=== PATIENT | female | born 1985 | race Caucasian/White ===

== ENCOUNTER 2016-08-26 00:33 | Emergency (ER) | payer OTHER, BC ==
[~2016-08-26] VITALS: Ht 165.1 cm; Wt 62.6 kg
[~2016-08-26 00:33] MED LIST: BIRTH CONTROL PO
[2016-08-26 00:35] VITALS: BP 101/61
[2016-08-26] MEDS ORDERED: ACETAMINOPHEN 325 MG TABLET PO ONE (01:30)
--- NOTE | 2016-08-26 01:33 | PHYS DOC ---
Past History Past Medical History: No Pertinent History, Other Past Surgical History: No Surgical History, Tonsillectomy Smoking: Non-smoker Alcohol Use: None Drug Use: None Adult General Chief Complaint Chief Complaint: UPPER EXTREMITY PAIN HPI HPI 30-year-old female presenting to the emergency department after sustaining a right arm injury where she was walking and sustaining a mechanical fall. She landed on her right elbow. She complains of pain in her right elbow that is sharp moderate nonradiating and without alleviating factors. Not associated with swelling. Review of systems is negative for wrist pain or hand pain distally. Negative for shoulder pain proximally. She denies any other injuries. She denies chest pain or shortness of breath. All other review of systems is negative unless otherwise noted in history of present illness. ED course: 30-year-old female presenting to the emergency department with right elbow pain after falling. Patient drove here and is currently breast-feeding so acetaminophen was used for pain control. Triage vital signs unremarkable. X-ray obtained of the right elbow. The patient was in discharged home in stable condition. The patient was then discharged home in stable condition to follow up with their primary care physician over the next 2-3 days. They were to return if their symptoms worsened or if they were concerned for any reason. Face -to-face discharge instructions and return precautions were given. Patient's questions were answered to their satisfaction. Patient is comfortable plan. Review of Systems Review of Systems SEE ABOVE. Current Medications Current Medications Current Medications Medications (Trade) Dose Ordered Sig/Ellen Start Time Stop Time Status Last Admin Dose Admin Acetaminophen (Tylenol) 650 mg 1X ONCE 08/26/16 01:30 08/26/16 01:31 Allergies Allergies Allergies Coded Allergies Type Severity Reaction Last Updated Verified Penicillins Allergy Unknown 08/26/16 No Physical Exam Physical Exam Constitutional: Well developed, well nourished, no acute distress, non-toxic appearance. [] HENT: Normocephalic, atraumatic, bilateral external ears normal, oropharynx moist, no oral exudates, nose normal. [] Eyes: PERRLA, EOMI, conjunctiva normal, no discharge. [] Neck: Normal range of motion, no tenderness, supple, no stridor. [] Cardiovascular:Heart rate regular rhythm, no murmur [] Lungs & Thorax: Bilateral breath sounds clear to auscultation [] Abdomen: Bowel sounds normal, soft, no tenderness, no masses, no pulsatile masses. [] Skin: Warm, dry, no erythema, no rash. [] Back: No tenderness, no CVA tenderness. [] Extremities: No tenderness, no cyanosis, no clubbing, ROM intact, no edema. [] Neurologic: Alert and oriented X 3, normal motor function, normal sensory function, no focal deficits noted. [] Psychologic: Affect normal, judgement normal, mood normal. [] Current Patient Data Vital Signs Vital Signs Date Time Temp Pulse Resp B/P (MAP) Pulse Ox O2 Delivery O2 Flow Rate FiO2 08/26/16 00:35 98.3 65 20 99 Room Air EKG EKG [] Radiology/Procedures Radiology/Procedures [] Course & Med Decision Making Course & Med Decision Making Pertinent Labs and Imaging studies reviewed. (See chart for details) [] Dragon Disclaimer Dragon Disclaimer This chart was dictated in whole or in part using Voice Recognition software in a busy, high-work load, and often noisy Emergency Department environment. It may contain unintended and wholly unrecognized errors or omissions. Departure Departure: Impression: Primary Impression: Radial head fracture Additional Impression: Radial head fracture, closed Disposition: HOME, SELF-CARE Condition: STABLE Referrals: DANG LUIS APRN (PCP) [facility] Patient Instructions: Radial Head Fracture Additional Instructions: Thank you for allowing us to participate in your care today. Followup with your primary care physician in 3 days and our orthopedic doctors at [facility] in 4-5 days. Call your Primary Doctor tomorrow and inform them of your visit today. If you do not have a primary care provider you can ask for a list of our primary care providers. Return to the emergency department you have any new or concerning findings. This should be evaluated by the primary care physician and any necessary consulting services for continued management within a few days after discharge. Return to emergency room if you have any new or concerning symptoms including but not limited to fever, chills, nausea, vomiting, intractable pain, any new rashes, chest pain, shortness of air, uncontrolled bleeding, difficulty breathing, and/or vision loss. Problem Qualifiers VALENTE SHINE MD Aug 26, 2016 01:33
--- NOTE | 2016-08-26 07:15 | RAD ---
Right elbow, 3 views, 08/26/2016: History: Fall, elbow pain There is a fracture of the radial head which is nondisplaced. No other fracture or dislocation is identified. There is a moderate-sized elbow joint effusion. IMPRESSION: 1. Nondisplaced radial head fracture. 2. Moderate sized elbow joint effusion.
== END 2016-08-26 01:45 | disposition home or self-care (01) ==
LOC: ER 00:33
DX: S52.121A Displaced fracture of head of right radius, initial encounter for closed fracture (principal); Z88.0 Allergy status to penicillin; W19.XXXA Unspecified fall, initial encounter; Y93.01 Activity, walking, marching and hiking; Y99.8 Other external cause status; Y92.89 Other specified places as the place of occurrence of the external cause
CPT/HCPCS: 73080; 99284-25

== ENCOUNTER 2020-05-26 11:18 | Emergency (ER) | payer BC, OTHER ==
[~2020-05-26] VITALS: Ht 165.1 cm; Wt 61.3 kg
[2020-05-26] MEDS ORDERED: IV NORMAL SALINE 1,000ML 1,000 ML IV SCH (11:30)
[2020-05-26] MEDS ORDERED: ONDANSETRON PF 4 MG/2 ML VIAL. IVP ONE (11:30)
[2020-05-26] MEDS ORDERED: FAMOTIDINE 20 MG/2 ML VIAL IVP ONE (11:30)
[2020-05-26] MEDS ORDERED: IOHEXOL 300 MG/ML 75 ML VIAL. IV ONE (11:45)
[2020-05-26] MEDS ORDERED: HYDROmorphone PF 1 MG/ML DISP.SYRIN IVP ONE (11:45)
--- NOTE | 2020-05-26 11:50 | PHYS DOC ---
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 States pain seems to move up her abdomen to the epigastric region and also wrap around to her back in a horizontal direction. Pt states "it's probably nothing and I'm just worried," although pt requested someone drive her to the ed, didn't feel as if she could. LMP 1 week ago. PSH - cardiac surgery for "hole in heart" at 6 yoa and D&C 2/2 SAB. Is on daily oral bcp "every night at 6pm, I don't want anymore kids." Denies any associated vaginal bleeding, dysuria, hematuria, suprapubic pressure, increased urinary frequency or urgency, flank pain, fever, myalgias, diarrhea or flulike symptoms. Review of Systems: Review of Systems: Constitutional: Denies fever or chills Eyes: Denies change in visual acuity or eye discharge HENT: Denies nasal congestion or sore throat Respiratory: Denies cough or shortness of breath Cardiovascular: Denies chest pain or edema GI: Denies melena, hematochezia, hematemesis, constipation or diarrhea : Denies dysuria or hematuria Musculoskeletal: Denies back pain or joint pain Integument: Denies rash or diaphoresis Neurologic: Denies headache, focal weakness or sensory changes Endocrine: Denies polyuria or polydipsia Lymphatic: Denies swollen glands Psychiatric: Denies depression or anxiety Current Medications: Current Meds: Current Medications Medications (Trade) Dose Ordered Sig/Ellen Start Time Stop Time Status Last Admin Dose Admin Famotidine (Pepcid Vial) 20 mg 1X ONCE 05/26/20 11:30 05/26/20 11:40 DC Iohexol (Omnipaque 300 Mg/ml) 75 ml 1X ONCE 05/26/20 11:45 05/26/20 11:46 Ondansetron HCl (Zofran) 4 mg 1X ONCE 05/26/20 11:30 05/26/20 11:40 DC Sodium Chloride 1,000 ml @ 1,000 mls/hr Q1H 05/26/20 11:30 05/26/20 12:29 Allergies: Allergies: Allergies Coded Allergies Type Severity Reaction Last Updated Verified Penicillins Allergy Unknown 08/26/16 No Physical Exam: PE: Constitutional: Nontoxic appearing, well nourished, lying RLR in position- pain worsened lying on her back and movements exacerbate nausea HENT: Normocephalic, atraumatic, Eyes: EOMI, conjunctiva normal, no discharge. Neck: Normal range of motion, supple, Cardiovascular: S1/2 present, regular rhythm Lungs & Thorax: Speaking in full sentences, bilateral equal chest rise, no tachypnea or increased work of breathing Abdomen: Voluntary guarding, diffuse right lower quadrant pain w/mcburneys point tenderness, no upper abdominal pain, no Darby sign, no rigidity Skin: Warm, no erythema or rash Back: No reproducible tenderness, no CVA tenderness. [] Extremities: No tenderness, no cyanosis, no lower extremity edema Neurologic: Alert and oriented X 3, normal motor function, normal sensory function, no focal deficits noted. [] Psychologic: Affect normal, judgement normal, mood normal. [] Bimanual exam: Chaperoned by RN, external genitalia normal, no gross vaginal bleeding or abnormal discharge, no CMT or adnexal ttp, no malodorous discharge Current Patient Data: Vital Signs: Vital Signs Date Time Temp Pulse Resp B/P (MAP) Pulse Ox O2 Delivery O2 Flow Rate FiO2 05/26/20 11:28 98.4 72 16 91/49 (63) 98 Room Air EKG: EKG: [] Radiology/Procedures: Radiology/Procedures: []IMAGING REPORT Signed PATIENT: CHINA SEGOVIA ACCOUNT: [id number] : 1985 LOCATION: ER AGE: 34 SEX: F EXAM STATUS: REG ER ORD. PHYSICIAN: ABI ROMEO DO REASON: rlq pain and vomit, r/o appey PROCEDURE: CT ABD PELV W/ IV CONTRST ONLY CT ABDOMEN+PELVIS W History: Reason: rlq pain and vomit, r/o appey / Spl. Instructions: / History: Technique: After the administration of intravenous contrast, CT imaging was performed of the abdomen and pelvis. Multiplanar images are reviewed. Exposure: One or more of the following individualized dose reduction techniques were utilized for this examination: 1. Automated exposure control 2. Adjustment of the mA and/or kV according to patient size 3. Use of iterative reconstruction technique. Comparison: None Findings: Lower chest: 4 mm left lower lobe pulmonary nodule (series 2 image 14). Abdomen and pelvis: Right hepatic lobe hypodense lesion measures 2.3 x 1.4 cm. Minimal intrahepatic biliary ductal dilatation. No common bile duct dilatation. Normal appearance of the gallbladder. The spleen, adrenal glands, and pancreas are unremarkable. Normal appearance the kidneys. No hydronephrosis. No renal calculi. Normal appearance of the urinary bladder. Normal appendix. Cecum is positioned within the right upper abdomen. No evidence of acute appendicitis. No bowel obstruction. Multiple vessels within the adnexa and heterogeneous enhancement of the myometrium. No pathologic lymphadenopathy. No no ascites. Bones: No pathologic osseous lesions. Impression: 1. No acute abdominal or pelvic pathology. 2. Mild prominence of the intrahepatic bile ducts. Recommend correlation with biliary lab values. 3. Prominent adnexal vessels and heterogeneous enhancement of myometrium, can be seen with pelvic congestion syndrome. 4. Right hepatic lobe solid hypoattenuating lesion, may represent hemangioma. If persistent clinical concern, MRI can definitively evaluate. 5. Small left lower lobe pulmonary nodule, likely benign given patient's age. If high risk recommend one-year follow-up. Electronically signed by: Mike Randall DO (05/26/2020 1:01 PM) [id number] DICTATED AND SIGNED BY: MIKE RANDALL DO DATE: 05/26/20 1248 CC: DANG LUIS APRN; ABI ROMEO DO ~MTH0 0 Heart Score: C/O Chest Pain: No Risk Factors: Risk Factors: DM, Current or recent (<one month) smoker, HTN, HLP, family history of CAD, obesity. Risk Scores: Score 0 - 3: 2.5% MACE over next 6 weeks - Discharge Home Score 4 - 6: 20.3% MACE over next 6 weeks - Admit for Clinical Observation Score 7 - 10: 72.7% MACE over next 6 weeks - Early Invasive Strategies Course & Med Decision Making: Course & Med Decision Making Pertinent Labs and Imaging studies reviewed. (See chart for details) Macro discharge Dragon Disclaimer: Andrea Disclaimer: This electronic medical record was generated, in whole or in part, using a voice recognition dictation system. Departure Departure: Impression: Primary Impression: UTI (urinary tract infection) Additional Impression: Nausea & vomiting Disposition: 01 DC HOME SELF CARE/HOMELESS Condition: STABLE Referrals: DANG LUIS APRN (PCP) repeat urine in 10 days after abx treatment return to ed if fever persists after medication, you cannot keep medication down (dehydration) or worsening pain Patient Instructions: Pyelonephritis, Adult, Urinary Tract Infection Additional Instructions: EMERGENCY DEPARTMENT GENERAL DISCHARGE INSTRUCTIONS Thank you for coming to [facility] (ED) today and trusting us with you care. We trust that you had a positivie experience in our Emergency Department. If you wish to speak to the department management, you may call the director at [phone]. YOUR FOLLOW UP INSTRUCTIONS ARE FOLLOWS: 1. Do you have a private Doctor? If you do not have a private doctor, please ask for a resource list of physicians or clinics that may be able to assist you with follow up care. 2. The Emergency Physician has interpreted your x-rays. The X-Ray specialist will also review them. If there is a change in the findings, you will be notified in 48 hours when at all possible. 3. A lab test or culture has been done, your results will be reviewed and you will be notified if you need a change in treatment. ADDITIONAL INSTRUCTIONS AND INFORMATION: 1. Your care today has been supervised by a physician who is specially trained in emergency care. Many problems require more than one evaluation for a complete diagnosis and treatment. We recommend that you schedule your follow up appointment as recommended to ensure complete treatment of you illness or injury. If you are unable to obtain follow up care and continue to have a problem, or if your condition worsens, we recommend that you return to the ED. 2. We are not able to safely determine your condition over the phone nor are we able to give sound medical advice over the phone. For these safety reasons, if you call for medical advice we will ask you to come to the ED for further evaluation. 3. If you have any questions regarding these discharge instructions please call the ED at [phone]. SAFETY INFORMATION: In the interest of safety, wellness, and injury prevention; we encourage you to wear your sealbelt, if you smoke; quite smoking, and we encourage family to use a protective helmet for bicycling and other sporting events that present an increased risk for head injury. IF YOUR SYMPTOMS WORSEN OR NEW SYMPTOMS DEVELOP, OR YOU HAVE CONCERNS ABOUT YOUR CONDITION; OR IF YOUR CONDITION WORSENS WHILE YOU ARE WAITING FOR YOUR FOLLOW UP APPOINTMENT; EITHER CONTACT YOUR PRIMARY CARE DOCTOR, THE PHYSICIAN WHOSE NAME AND NUMBER YOU WERE GIVEN, OR RETURN TO THE ED IMMEDIATELY. Scripts Nitrofurantoin Monohyd/M-Cryst (MACROBID 100 MG CAPSULE) 100 Mg Capsule 1 CAP PO BID for uti for 7 Days, #14 CAP 0 Refills Prov: ABI ROMEO DO 05/26/20 Ondansetron (ONDANSETRON ODT) 4 Mg Tab.rapdis 4 MG PO Q6HRS for Nausea/Vomiting, #15 TAB Prov: ABI ROMEO DO 05/26/20 ABI ROMEO DO May 26, 2020 11:50
[2020-05-26 12:23] LABS: HEMOGLOBIN 13.9 g/dL (12.0-15.5); MEAN CORPUSCULAR HEMOGLOBIN 31 pg (25-35); MEAN CORPUSCULAR HGB CONC 34 g/dL (31-37); MEAN CORPUSCULAR VOLUME 91 fL (79-100); RED BLOOD COUNT 4.53 x10^6/uL (3.50-5.40); RED CELL DISTRIBUTION WIDTH 13.1 % (11.5-14.5); WHITE BLOOD COUNT 7.5 x10^3/uL (4.0-11.0)
[2020-05-26 12:24] LABS: BASO % 1 % (0-3); EOS # 0.2 x10^3/uL (0.0-0.7); EOS % 3 % (0-3); LYMPH # 1.2 x10^3/uL (1.0-4.8); LYMPH % 16 % (24-48); MONO # 0.5 x10^3/uL (0.0-1.1); MONO % 6 % (0-9); NEUT # 5.6 x10^3uL (1.8-7.7); NEUT % 74 % (31-73); PLATELET COUNT 186 x10^3/uL (140-400)
[2020-05-26 12:29] LABS: CALCIUM 8.9 mg/dL (8.5-10.1); CREATININE 0.8 mg/dL (0.6-1.0); GFR 82.1; POTASSIUM 3.9 mmol/L (3.5-5.1)
[2020-05-26 12:36] LABS: ALBUMIN/GLOBULIN RATIO 1.3 (1.0-1.7); TOTAL BILIRUBIN 0.5 mg/dL (0.2-1.0)
--- NOTE | 2020-05-26 13:04 | RAD ---
CT ABDOMEN+PELVIS W History: Reason: rlq pain and vomit, r/o appey / Spl. Instructions: / History: Technique: After the administration of intravenous contrast, CT imaging was performed of the abdomen and pelvis. Multiplanar images are reviewed. Exposure: One or more of the following individualized dose reduction techniques were utilized for thi s examination: 1. Automated exposure control 2. Adjustment of the mA and/or kV according to patient size 3. Use of iterative reconstruction technique. Comparison: None Findings: Lower chest: 4 mm left lower lobe pulmonary nodule (series 2 image 14). Abdomen and pelvis: Right hepatic lobe hypodense lesion measures 2.3 x 1.4 cm. Minimal intrahepatic b iliary ductal dilatation. No common bile duct dilatation. Normal appearance of the gallbladder. The s pleen, adrenal glands, and pancreas are unremarkable. Normal appearance the kidneys. No hydronephrosis. No renal calculi. Normal appearance of the urinary bladder. Normal appendix. Cecum is positioned within the right upper abdomen. No evidence of acute appendiciti s. No bowel obstruction. Multiple vessels within the adnexa and heterogeneous enhancement of the myometrium. No pathologic lym phadenopathy. No no ascites. Bones: No pathologic osseous lesions. Impression: 1. No acute abdominal or pelvic pathology. 2. Mild prominence of the intrahepatic bile ducts. Recommend correlation with biliary lab values. 3. Prominent adnexal vessels and heterogeneous enhancement of myometrium, can be seen with pelvic co ngestion syndrome. 4. Right hepatic lobe solid hypoattenuating lesion, may represent hemangioma. If persistent clinical concern, MRI can definitively evaluate. 5. Small left lower lobe pulmonary nodule, likely benign given patient's age. If high risk recommend one-year follow-up. Electronically signed by: Mike Lacy DO (05/26/2020 1:01 PM) [id number]
[2020-05-26 14:18] LABS: BARBITURATES NEG (NEG); BENZODIAZEPINES NEG (NEG); CANNABINOIDS NEG (NEG); COCAINE NEG (NEG); METHADONE NEG (NEG); OPIATES NEG (NEG); PHENCYCLIDINE NEG (NEG)
[2020-05-26 14:19] LABS: AMPHETAMINE/METHAMPHETAMINE NEG (NEG)
[2020-05-26 14:37] LABS: BILIRUBIN,URINE NEG (NEG); CLARITY,URINE CLEAR; COLOR,URINE COLORLESS; GLUCOSE,URINE NEG (NEG)
[2020-05-26 14:38] LABS: BACTERIA,URINE 0 /HPF (0-FEW); NITRITE,URINE NEG (NEG); RBC,URINE 0 /HPF (0-2); SQUAMOUS EPITHELIAL CELL,UR MANY /LPF; UROBILINOGEN,URINE 0.2 mg/dL (0.2 mg/dL)
[2020-05-26 15:43] VITALS: BP 110/67
[2020-05-26] MEDS ORDERED: ONDA4TAB12 PO (16:35)
[2020-05-26] MEDS ORDERED: NITR100C62 PO (16:35)
== END 2020-05-26 16:54 | disposition home or self-care (01) ==
LOC: ER 11:18
DX: N39.0 Urinary tract infection, site not specified (principal); R11.2 Nausea with vomiting, unspecified; Z88.0 Allergy status to penicillin
CPT/HCPCS: 36415; 74177; 80053; 80307; 81001; 83690; 85025; 87086; 96361; 96374; 96375; 99285; J1170; J2405; J3490; J7030; Q9967